=== PATIENT | female | born 1995 | race American Indian/Alaskan Native ===

== ENCOUNTER 2020-04-17 11:05 | Outpatient (CLI) | payer OTHER | END 2020-04-17 11:56 | disposition home or self-care (01) | LOC: NST 11:05 | PROVIDERS: ATTEND Obstetrics & Gynecology | DX: Z34.82 Encounter for supervision of other normal pregnancy, second trimester (principal) ==

== ENCOUNTER 2020-04-24 07:47 | Outpatient (CLI) | payer OTHER | END 2020-04-24 08:53 | disposition home or self-care (01) | LOC: NST 07:47 | PROVIDERS: ATTEND Obstetrics & Gynecology | DX: Z34.83 Encounter for supervision of other normal pregnancy, third trimester (principal) ==

== ENCOUNTER 2020-04-26 05:00 | Inpatient (IN) | payer OTHER ==
[~2020-04-26] VITALS: Ht 172.7 cm; Wt 88.9 kg
[2020-04-26] MEDS ORDERED: PRENATAL CAPLE1 EAC1 PO (05:55)
[2020-04-26] MEDS ORDERED: NIFEDIPINE20 MG PO (05:58)
[2020-04-26] MEDS ORDERED: TERCONAZOLE20 GM VAG (06:04)
== END 2020-04-27 08:34 | disposition home or self-care (01) | DRG 833 ==
LOC: SURG-SUITE 05:00 → LDR 05:00 → OB/GYN 11:17 → SURG-SUITE 14:55
PROVIDERS: ADMIT Obstetrics & Gynecology; ATTEND Obstetrics & Gynecology
PROC: 4A1HXFZ Monitoring of Products of Conception, Cardiac Rhythm, External Approach (ICD-10-PCS; principal; 2020-04-26)
DX: O47.03 False labor before 37 completed weeks of gestation, third trimester (principal); Z3A.30 30 weeks gestation of pregnancy; Z20.822 Contact with and (suspected) exposure to COVID-19

== ENCOUNTER 2020-04-29 20:48 | Inpatient (IN) | payer OTHER ==
[~2020-04-29] VITALS: Ht 172.7 cm; Wt 88.9 kg
[~2020-04-29 20:48] MED LIST: NIFEDIPINE20 MG PO; PRENATAL CAPLE1 EAC1 PO; TERCONAZOLE20 GM VAG
== END 2020-05-03 11:24 | disposition home or self-care (01) | DRG 807 ==
LOC: LDR 20:48 → OB/GYN 05-01 13:48
PROVIDERS: ADMIT Obstetrics & Gynecology; ATTEND Obstetrics & Gynecology
PROC: 4A1HXFZ Monitoring of Products of Conception, Cardiac Rhythm, External Approach (ICD-10-PCS; 2020-04-29)
PROC: 10E0XZZ Delivery of Products of Conception, External Approach (ICD-10-PCS; principal; 2020-05-01)
PROC: BY4FZZZ Ultrasonography of Third Trimester, Single Fetus (ICD-10-PCS; 2020-05-01)
DX: O60.14X0 Preterm labor third trimester with preterm delivery third trimester, not applicable or unspecified (principal); Z37.0 Single live birth; O42.013 Preterm premature rupture of membranes, onset of labor within 24 hours of rupture, third trimester; Z3A.31 31 weeks gestation of pregnancy

== ENCOUNTER 2021-05-29 13:15 | Emergency (ER) | payer OTHER ==
[~2021-05-29] VITALS: Ht 172.7 cm; Wt 79.4 kg
[2021-05-29] MEDS ORDERED: OSEL75CA PO (18:01)
== END 2021-05-29 19:40 | disposition home or self-care (01) ==
LOC: ER 13:15
DX: J10.1 Influenza due to other identified influenza virus with other respiratory manifestations (principal); Z20.822 Contact with and (suspected) exposure to COVID-19